=== PATIENT | female | born 1960 | race Caucasian/White ===

== ENCOUNTER 2016-07-29 20:00 | Emergency (ER) | payer BC ==
[~2016-07-29] VITALS: Ht 170.2 cm; Wt 75.0 kg
[~2016-07-29 20:00] MED LIST: AMPYRA10 MG PO; ASPIRIN81 M2 PO; AUBAGIO14 MG PO; BACLOFEN10 MG PO; CARBIDOPA-LEVO1 EAC8 PO; FENOFIBRATE160 M1 PO; LYRICA50 MG PO; MECLIZINE HCL25 MG PO; METHYLPREDNISOLO4 M1 PO; MODAFINIL200 MG PO; MYRBETRIQ25 MG PO; VENLAFAXINE HCL75 M3 PO
[2016-07-29] MEDS ORDERED: VICODIN 5-3001 EACH PO (21:41)
[2016-07-29 21:58] VITALS: BP 147/80
== END 2016-07-29 22:00 | disposition home or self-care (01) ==
LOC: EME 20:00
DX: S00.83XA Contusion of other part of head, initial encounter (principal); W01.198A Fall on same level from slipping, tripping and stumbling with subsequent striking against other object, initial encounter; Y92.512 Supermarket, store or market as the place of occurrence of the external cause; G35 Multiple sclerosis
CPT/HCPCS: 70486; 99281; 99284